=== PATIENT | female | born 1930 | race Caucasian/White ===

== ENCOUNTER → 2017-04-06 | Outpatient (CLI) | payer MEDICARE, BC, OTHER ==
[~2017-04-06] MED LIST: AMITRIPTYLINE25 MG PO; AMLO5TAB PO; AMOXICILLIN AND1 TER PO; ANASTROZOLE1 MG PO; BYSTOLIC10 MG PO; BYSTOLIC20 MG PO; CELEBREX 200MG200 MG PO; COUMADIN5 MG PO; DIGOXIN0.125 MG PO; DIGOXIN0.25 MG PO; HYGROTON GENERI25 MG PO; ICAPS MV1 TAB PO; LANSOPRAZOLE30 M1 PO; LANSOPRAZOLE30 MG PO; LISINOPRIL40 MG PO; LOSARTAN POTAS100 MG PO; NEXIUM40 MG PO; PRADAXA150 MG PO; PRAVASTATIN40 MG PO; PREMARIN VAGINA VG; PROVENTIL0.09 MG/AC IH; SYMBICORT1 AE1 IH; XARELTO20 MG PO; ZOLPIDEM 10MG T10 MG PO
== END ==
LOC: LAB 11:50
DX: J20.9 Acute bronchitis, unspecified (principal)